=== PATIENT | female | born 1955 | race African-American/Black ===

== ENCOUNTER 2024-07-28 16:35 | Inpatient (IN) | payer MEDICARE ==
[~2024-07-28] VITALS: Ht 167.6 cm; Wt 80.7 kg
[2024-07-28 17:10] VITALS: O2SAT 99
[2024-07-28] MEDS: OLANZAPINE 10 MG/VIAL IM STA (17:10)
[2024-07-28] MEDS: MIDAZOLAM HCL 2 MG/2 ML VIAL IM ONE (17:10)
[2024-07-28 17:45] LABS: BASOPHILS % 0.2 % (0.0-2.0); EOSINOPHILS % 0.3 % (0.0-5.0); HEMATOCRIT. 41.6 % (36.0-48.0); HEMOGLOBIN. 13.1 g/dL (12.0-16.0); LYMPHOCYTES % 11.4 % (20.0-50.0); MEAN CORPUSCULAR HEMOGLOBIN 28.2 pg (28.0-32.0); MEAN CORPUSCULAR HGB CONC 31.5 g/dL (31.0-37.0); MEAN CORPUSCULAR VOLUME 89.5 fL (81.0-99.0); MEAN PLATELET VOLUME 7.2 fl (7.4-10.4); MONOCYTES % 5.3 % (2.0-8.0); NEUTROPHILS % 82.8 % (40.0-76.0); PLATELET 288 x1000/uL (130-400); RED BLOOD CELL COUNT 4.64 mill/uL (4.2-5.4); RED CELL DISTRIBUTION WIDTH 14.4 % (11.6-14.6); WHITE BLOOD COUNT 9.9 x1000/uL (4.5-11.0)
[2024-07-28 17:53] LABS: CHLORIDE 103 mEq/L (98-107); POTASSIUM 3.4 mEq/L (3.5-5.1); SODIUM 137 mEq/L (136-145)
[2024-07-28 17:54] LABS: CALCIUM 10.2 mg/dL (8.7-10.4); CARBON DIOXIDE 22 mEq/L (21-32)
[2024-07-28 17:59] LABS: CREATININE 0.9 mg/dL (0.6-1.0); GLUCOSE 134 mg/dL (70-105); UREA NITROGEN BLOOD 22 mg/dL (9-23)
[2024-07-28 18:00] LABS: TROPONIN I HIGH SENSITIVITY 6 ng/L (3.0-34)
[2024-07-28 18:01] LABS: ACETAMINOPHEN < 2 ug/mL (10-30); ALANINE AMINOTRANSFERASE 18 IU/L (10-49); ALBUMIN 4.5 g/dL (3.2-4.8); ASPARTATE AMINOTRANSFERASE 24 IU/L (<34); BILIRUBIN DIRECT 0.1 mg/dL (<=3.0); BILIRUBIN TOTAL 0.4 mg/dL (0.1-1.0); ETHANOL BLOOD < 10 mg/dL (<10); PROTEIN TOTAL 7.6 g/dL (6.0-8.3)
[2024-07-28 18:03] LABS: THYROID STIMULATING HORMONE 0.82 uIU/mL (0.55-4.78)
[2024-07-28] MEDS: SODIUM CHLORIDE 0.9% 1,000 ML IV ONE (19:17)
[2024-07-28 20:08] LABS: TROPONIN I HIGH SENSITIVITY 14 ng/L (3.0-34)
[2024-07-28] MEDS ORDERED: DOCUSATE SODIUM 100MG CAPSULE PO PRN (20:45)
[2024-07-28] MEDS ORDERED: MAGNESIUM/ALUMINUM HYDROXIDE/SIMETHICONE 30ML UDC PO PRN (20:45)
[2024-07-28] MEDS ORDERED: ONDANSETRON HCL 4MG/2ML INJ IV PRN (20:45)
[2024-07-28] MEDS ORDERED: CLONIDINE 0.1MG TABLET PO PRN (20:45)
[2024-07-28] MEDS ORDERED: IPRATROPIUM/ALBUTEROL 0.5-3(2.5)MG/3ML NEB HHN PRN (20:45)
[2024-07-28] MEDS ORDERED: ACETAMINOPHEN 325MG TABLET PO PRN (20:45)
[2024-07-28] MEDS: GUAIFENESIN 200MG/10ML SUGAR FREE UDC PO PRN (23:06)
[2024-07-28 23:43] LABS: CLARITY URINE CLEAR (CLEAR); COLOR URINE YELLOW (YELLOW); GLUCOSE URINE NEGATIVE (NEGATIVE); KETONES URINE NEGATIVE (NEGATIVE); LEUKOCYTE ESTERASE URINE NEGATIVE (NEGATIVE); NITRITE URINE NEGATIVE (NEGATIVE); OCCULT BLOOD URINE NEGATIVE (NEGATIVE); PH URINE 5.5 (4.5-8.0); PROTEIN URINE NEGATIVE (NEGATIVE); SPECIFIC GRAVITY URINE 1.006 (1.005-1.030); UROBILINOGEN URINE 0.2 E.U./dL (0.2-1.0)
[2024-07-28 23:45] LABS: TROPONIN I HIGH SENSITIVITY 14 ng/L (3.0-34)
[2024-07-29] VITALS (7 sets, daily range): BP systolic 99–146; BP diastolic 60–76; PULSE 56–87; RESP 14–18; TEMP 36–36.8; O2SAT 98–100
[2024-07-29 00:05] LABS: *AMPHETAMINES SCREEN URINE NEGATIVE (NEGATIVE); *BARBITURATES SCREEN URINE NEGATIVE (NEGATIVE); *BENZODIAZEPINES SCREEN URINE PRESUMPTIVE POSITIVE (NEGATIVE); *COCAINE SCREEN URINE NEGATIVE (NEGATIVE); CANNABINOID URINE SCREEN NEGATIVE (NEGATIVE); METHADONE URINE SCREEN NEGATIVE (NEGATIVE); OPIATES URINE SCREEN NEGATIVE (NEGATIVE); PHENCYCLIDINE URINE SCREEN NEGATIVE (NEGATIVE)
[2024-07-29 00:06] LABS: ECSTASY MDMA SCREEN URINE NEGATIVE (NEGATIVE)
[2024-07-29] MEDS: POTASSIUM CHLORIDE 20MEQ TABLET SR PO NR (07:21)
[2024-07-29] MEDS ORDERED: GABA-1180 PO (08:07)
[2024-07-29] MEDS ORDERED: ESCI20TA37 PO (08:07)
[2024-07-29] MEDS ORDERED: CHLO25TA2 PO (08:07)
[2024-07-29] MEDS ORDERED: MEDICATION NOT ON FORMULARY EA (Escitalopram Oxalate 1 TAB) PO SCH (09:00)
[2024-07-29] MEDS ORDERED: CITALOPRAM HYDROBROMIDE 10MG TABLET PO SCH (09:00)
[2024-07-29] MEDS: CITALOPRAM HYDROBROMIDE 10MG TABLET PO SCH (10:10)
[2024-07-29] MEDS: CHLORTHALIDONE 25MG TABLET PO SCH (10:10)
[2024-07-29 10:40] LABS: BASOPHILS % 0.2 % (0.0-2.0); DIFFERENTIAL COMMENT 0; EOSINOPHILS % 1.7 % (0.0-5.0); HEMATOCRIT. 43.7 % (36.0-48.0); HEMOGLOBIN. 13.4 g/dL (12.0-16.0); MEAN CORPUSCULAR HEMOGLOBIN 27.8 pg (28.0-32.0); MEAN CORPUSCULAR HGB CONC 30.7 g/dL (31.0-37.0); MEAN CORPUSCULAR VOLUME 90.6 fL (81.0-99.0); MEAN PLATELET VOLUME 8.5 fl (7.4-10.4); MONOCYTES % 9.1 % (2.0-8.0); PLATELET 230 x1000/uL (130-400); RED BLOOD CELL COUNT 4.82 mill/uL (4.2-5.4); RED CELL DISTRIBUTION WIDTH 15.2 % (11.6-14.6); WHITE BLOOD COUNT 5.6 x1000/uL (4.5-11.0)
[2024-07-29] MEDS ORDERED: QUETIAPINE FUMARATE 25MG TABLET PO PRN (12:15)
[2024-07-29 13:28] LABS: CHLORIDE 107 mEq/L (98-107); POTASSIUM 4.7 mEq/L (3.5-5.1); SODIUM 142 mEq/L (136-145)
[2024-07-29 13:29] LABS: CARBON DIOXIDE 26 mEq/L (21-32)
[2024-07-29 13:30] LABS: CALCIUM 10.5 mg/dL (8.7-10.4)
[2024-07-29 13:34] LABS: CREATININE 0.8 mg/dL (0.6-1.0); GLUCOSE 116 mg/dL (70-105)
[2024-07-29 13:35] LABS: LDL CHOLESTEROL 56 mg/dL (5-100); TRIGLYCERIDE 63 mg/dL (0-150); UREA NITROGEN BLOOD 18 mg/dL (9-23)
[2024-07-29 13:36] LABS: CHOLESTEROL 135 mg/dL (<200); HDL CHOLESTEROL 61 mg/dL (>65)
[2024-07-30] VITALS: BP 111/68; PULSE 68; RESP 16; TEMP 36.4; O2SAT 98
[2024-07-30 04:00] VITALS: BP 97/60; PULSE 60; RESP 17; TEMP 36.9; O2SAT 97
[2024-07-30] MEDS: LORAZEPAM 0.5MG TABLET PO PRN (07:52)
[2024-07-30] MEDS: ACETAMINOPHEN 325MG TABLET PO PRN (07:53)
[2024-07-30] MEDS: ARIPIPRAZOLE 2MG TABLET PO SCH (07:53)
[2024-07-30 08:00] VITALS: BP 121/68; PULSE 79; RESP 16; TEMP 36.8; O2SAT 99
== END 2024-07-30 11:33 | disposition home or self-care (01) | DRG 92 ==
LOC: ER 16:35 → 5WST 19:58 → EDBEDREQTM 19:59 → EDBEDREQ 19:59
PROVIDERS: ADMIT Internal Medicine; ATTEND Internal Medicine
DX: G92.8 Other toxic encephalopathy (principal); F33.2 Major depressive disorder, recurrent severe without psychotic features; F41.0 Panic disorder [episodic paroxysmal anxiety]; E87.6 Hypokalemia; F43.10 Post-traumatic stress disorder, unspecified; Z20.822 Contact with and (suspected) exposure to COVID-19; I10 Essential (primary) hypertension; Z79.899 Other long term (current) drug therapy; X58.XXXA Exposure to other specified factors, initial encounter; Y93.89 Activity, other specified; Y92.89 Other specified places as the place of occurrence of the external cause; Y99.8 Other external cause status
CPT/HCPCS: 36415; 71045; 80048; 80061; 80076; 80305; 80307; 80320; 80329; 81003; 83036; 84443; 84484; 85025; 87426; 93005; 93970; 99285; J2250; J3490; J7030; G0480